=== PATIENT | male | born 1980 | race Caucasian/White ===

== ENCOUNTER 2023-02-20 10:03 | Emergency (ER) | payer OTHER ==
[2023-02-20 10:23] VITALS: BP 139/91; PULSE 45; RESP 16; TEMP 97.8; BMI 27.3
[2023-02-20] MEDS ORDERED: DOXYCYCLINE HYCLATE 100 MG CAPSULE PO ONE ×2 (10:26→10:49)
== END 2023-02-20 11:06 | disposition home or self-care (01) ==
LOC: FER 10:03
DX: S40.861A Insect bite (nonvenomous) of right upper arm, initial encounter (principal); S40.261A Insect bite (nonvenomous) of right shoulder, initial encounter; W57.XXXA Bitten or stung by nonvenomous insect and other nonvenomous arthropods, initial encounter
CPT/HCPCS: 36415; 86618; 99283-25

== ENCOUNTER 2023-06-20 08:47 | Emergency (ER) | payer OTHER ==
[2023-06-20] MEDS ORDERED: IBUPROFEN 600 MG TABLET (FP) PO ONE (08:57)
[2023-06-20 08:59] VITALS: BP 151/96; PULSE 79; RESP 17; TEMP 97.8; BMI 27.3
[2023-06-20] MEDS: IBUPROFEN 600 MG TABLET (FP) PO ONE (09:03)
[2023-06-20 11:24] LABS: INR 0.98 (0.83-1.09); PROTHROMBIN TIME (PATIENT) 11.4 SEC (9.7-13.0)
[2023-06-20 11:27] LABS: ACTIVATED PTT 28.6 SECONDS (25.2-36.5)
[2023-06-20 11:37] LABS: HEMATOCRIT 39.8 % (35.4-49); HEMOGLOBIN 14.2 G/dL (11.7-16.9); MCHC 35.6 g/dl (32.0-35.9); MEAN CELL VOLUME 101.2 fl (80-96); MEAN PLT VOLUME 9.1 fl (7.5-11.1); PLATELET COUNT 201.3 10^3/uL (134-434); RBC 3.93 10^6/uL (4.00-5.60); RDW 12.8 % (11.9-15.9); WHITE BLOOD COUNT 8.9 10^3/uL (4.0-10.8)
[2023-06-20 12:09] LABS: PLATELET ESTIMATE ADEQUATE
[2023-06-20 12:18] LABS: CALCIUM 9.2 mg/dL (8.5-10.1)
[2023-06-20 12:22] LABS: CREATININE 0.8 mg/dL (0.55-1.3)
[2023-06-20 12:23] LABS: BILIRUBIN,TOTAL 0.4 mg/dL (0.2-1); TOT PROT 6.7 g/dl (6.4-8.2)
== END 2023-06-20 11:33 | disposition home or self-care (01) ==
LOC: FER 08:47
PROC: 0SSFXZZ Reposition Right Ankle Joint, External Approach (ICD-10-PCS; principal; 2023-06-20)
DX: S82.891A Other fracture of right lower leg, initial encounter for closed fracture (principal); M25.571 Pain in right ankle and joints of right foot; M25.471 Effusion, right ankle; W01.0XXA Fall on same level from slipping, tripping and stumbling without subsequent striking against object, initial encounter; Y93.01 Activity, walking, marching and hiking; Y92.009 Unspecified place in unspecified non-institutional (private) residence as the place of occurrence of the external cause
CPT/HCPCS: 36415; 73610-TC-RT-FY; 73630-TC-RT-FY; 80053; 85027; 85610; 85730; 86850; 86900; 86901; 93005; 99283-25